=== PATIENT | male | born 1970 | race Caucasian/White ===

== ENCOUNTER → 2016-10-24 | Outpatient (CLI) | payer BC ==
[~2016-10-24] MED LIST: Iopamidol 755 MG/ML 500 ML Multipack Bottle IVPUSH STA
[2016-10-24 16:29] LABS: CHLORIDE,CL 101 mmol/L (98-110); SODIUM,NA 139 mmol/L (136-146)
--- NOTE | 2016-10-25 13:44 | CR ---
EXAM DATE: 10/24/16 PATIENT'S AGE: 46 Patient: GEORGE CARNEY Facility: [facility] Site . Site : 1970 Study: XRay-Chest [id number]/25/2017 4:28:31 PM Ordering Physician: Malachi Marlow Final Report: INDICATION: encounter for other preprocedural exam TECHNIQUE: Chest 2 views. COMPARISON: None. FINDINGS: Cardiovascular and mediastinum: Heart size and vasculature are normal in caliber and appearance. Mediastinum is within normal limits. Lungs and pleural spaces: Lungs are clear. No sign of infiltrate or mass. No sign of pleural effusion. No pneumothorax. Bones and soft tissues: No significant findings. IMPRESSION: Unremarkable chest. Dictated by: Michael Sanchez MD @ 10/25/2016 10:51:04 Signed by: Michael Sanchez MD @10/25/2016 10:51:04 AM (Electronic Signature) Report Signed by Proxy and Original Signed Document filed in the Medical Record. MTDD
--- NOTE | 2016-10-25 13:45 | CT ---
EXAM DATE: 10/24/16 PATIENT'S AGE: 46 Patient: GEORGE CARNEY Facility: [facility] Site . Site : 1970 Study: CT-ST Neck [id number]/25/2017 4:50:13 PM Ordering Physician: Malachi Marlow Final Report: INDICATION: Lump on side of face. Preoperative evaluation. CT NECK WITH CONTRAST TECHNIQUE: Axial multidetector CT imaging was performed through the neck following intravenous contrast administration using 75 mL Isovue 370. Coronal and sagittal reconstructions were generated. FINDINGS: There is a 5.3 x 3.5 x 3.7 centimeter cystic mass in the lateral left neck just beneath the skin at the level of the parotid gland. The mass indents the lateral aspect of the left parotid. The mass has an imperceptibly thin wall and shows uniform fluid attenuation. No abnormally enlarged lymph nodes are identified. There is no evidence of abscess. The included airway is within normal limits. The left parotid, submandibular, and thyroid glands are unremarkable. Cervical vascular structures are within normal limits. Osseous structures show no significant findings. Included skull base and lung apices are unremarkable. IMPRESSION: 5.3 x 3.5 x 3.7 centimeter cystic mass in the lateral upper left neck, just below the skin surface. A benign mass of dermal origin, such as a sebaceous cyst or epidermal inclusion cyst, is favored. A cystic lesion arising from the superficial aspect of the parotid is also possible, but considered less likely. Branchial cleft cyst is also a consideration. BRIAN NAVARRETE MD [employer] Dictated by Silvestre Navarrete MD @ 10/24/2016 5:15:17 PM Dictated by: Silvestre Navarrete MD @ 10/24/2016 17:17:35 Signed by: Silvestre Navarrete MD @10/24/2016 5:17:35 PM (Electronic Signature) Report Signed by Proxy and Original Signed Document filed in the Medical Record. [facility] HOSPITALGio
== END ==
LOC: MW.DI 15:57
PROVIDERS: ATTEND Otolaryngology
DX: R22.0 Localized swelling, mass and lump, head (principal); Z01.818 Encounter for other preprocedural examination; R22.1 Localized swelling, mass and lump, neck
CPT/HCPCS: 36415; 70491; 71020; 80053; 80061; 85027; 85610; 85730; Q9967

== ENCOUNTER 2016-11-01 06:24 | Day surgery (SDC) | payer BC ==
--- NOTE | 2016-11-01 07:11 | PCM.PREANE ---
Preanesthetic Assessment - Anesthesia/Transfusion/Family Hx Anesthesia History: Prior Anesthesia Without Reaction Family History of Anesthesia Reaction: No Transfusion History: No Prior Transfusion(s) Intubation History: Unknown - Review of Systems General: No Symptoms Pulmonary: No Symptoms Cardiovascular: No Symptoms Gastrointestinal: No symptoms Neurological: No Symptoms Other: Reports: None - Physical Assessment Height: 1.8 m Weight: 69.853 kg ASA Class: 2 Mental Status: Alert & Oriented x3 Airway Class: Mallampati = 2 Dentition: Reports: Normal Dentition Thyro-Mental Finger Breadths: 3 Mouth Opening Finger Breadths: 2 ROM/Head Extension: Full Lungs: Clear to auscultation, Normal respiratory effort Cardiovascular: Regular Rate, Regular Rhythm - Allergies Allergies/Adverse Reactions: Allergies Allergy/AdvReac Type Severity Reaction Status Date / Time No Known Allergies Allergy Verified 10/30/16 08:24 - Blood Blood Available: No - Anesthesia Plan Pre-Op Medication Ordered: None - Acknowledgements Anesthesia Type Planned: General Anesthesia Pt an Appropriate Candidate for the Planned Anesthesia: Yes Alternatives and Risks of Anesthesia Discussed w Pt/Guardian: Yes Pt/Guardian Understands and Agrees with Anesthesia Plan: Yes PreAnesthesia Questionnaire HEENT History: Reports: None Musculoskeletal History: Reports: Arthritis Dermatologic History: Reports: Other (see below) Other Dermatologic History: 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 from abdominal area) - SUBSTANCE USE Smoking Status *Q: Current Every Day Smoker (2 ppd) Tobacco Use Within Last Twelve Months: Cigarettes Number of Drinks Per Day: 2 Recreational Drug Use History: No - HOME MEDS Home Medications: Home Meds . [No Known Home Meds] 10/30/16 [History]
[2016-11-01] MEDS ORDERED: Lidocaine 2% 5 ML SDV ONE ×2 (07:26→10:38)
[2016-11-01] MEDS ORDERED: Propofol 200 MG/20 ML SDV ONE ×2 (07:27→09:12)
[2016-11-01] MEDS ORDERED: fentaNYL 100 MCG/2 ML SDV ONE (07:27)
[2016-11-01] MEDS ORDERED: Midazolam 1 MG/ML 2 ML SDV ONE (07:27)
--- NOTE | 2016-11-01 08:32 | PCM.HPR ---
H & P Addendum review - H & P Addendum Review Date of Original H & P: 10/20/16 Date Reviewed: 11/01/16 Time Reviewed: 08:30 Patient was examined: No Changes
[2016-11-01] MEDS ORDERED: EPINEPHrine 1:1000 1 MG/ML SDV ONE (08:36)
[2016-11-01] MEDS ORDERED: Lidocaine 2% with EPINEPHrine 1:100,000 20 ML MDV ONE (08:37)
[2016-11-01] MEDS ORDERED: ceFAZolin 1 GM Vial ONE (09:11)
[2016-11-01] MEDS ORDERED: Sodium Chloride 0.9% 20 ML ONE (09:11)
[2016-11-01] MEDS ORDERED: Metoprolol Tartrate 5 MG/5 ML SDV ONE (09:16)
[2016-11-01] MEDS ORDERED: Dexamethasone 4 MG/ML 5 ML MDV ONE (09:17)
[2016-11-01] MEDS ORDERED: fentaNYL 250 MCG/5 ML SDV ONE (09:29)
[2016-11-01] MEDS ORDERED: fentaNYL 100 MCG/2 ML SDV IVPUSH PRN (09:45)
[2016-11-01] MEDS ORDERED: Phenylephrine/Normal Saline 100 MCG/ML 10 ML Syringe ONE (09:57)
[2016-11-01] MEDS ORDERED: Ondansetron 4 MG/2 ML SDV ONE (10:41)
[2016-11-01] MEDS ORDERED: Ketorolac 30 MG/ML SDV ONE (10:41)
--- NOTE | 2016-11-01 12:16 | PCM.OPNOTE ---
- General Post-Op/Procedure Note Date of Surgery/Procedure: 11/01/16 Pre Op Diagnosis: Left facial mass Post-Op Diagnosis: Left facial mass - likely sebaceous cyst or epidermoid Anesthesia Technique: General LMA Primary Surgeon: Ele Ly Anesthesia Provider: Porsche Stroud [facility] Fluid Replacement, Intraop: 1,500 EBL in mLs: 10 Surgical Drain/Tube Type: [place] Condition: Good Free Text/Narrative:: Indication : Patient presented to my office with a 8 year history of gradually enlarging left facial mass. This according to him had been drained twice in [place]. When seen by me in the office he had approximately 7 x 6 cm soft fluctuant and nontender mass on the left side of his face in position overlying parotid gland. He underwent a contrast CT scan of the face and neck which revealed of 5.3 x 3.5 x 3.7 cm cystic mass in the left upper lateral neck- subcutaneous. Fat planes between the mass and parotid were not well defined. An informed consent was obtained, risks and benefits were discussed and he was brought back to operating room for excision of the mass. Findings: Left facial mass in region of the parotid gland and lifting the ear lobule. Approx 6cm X 5 cm; firm , tense and unable to pinch off the skin. On excision - a 5. 3 cm X 4 cm white mass with cheesy material was removed. Procedure: A timeout was performed and the patient was brought back to operating room. General anesthesia was administered with LMA. Patient was appropriately positioned on the operating table. The part was prepped and draped in a standard sterile fashion and corner of the left side of the mouth was left exposed. A skin crease incision was marked overlying the swelling extending from just beneath the lobule to 6 cm inferiorly. 2% lidocaine with 1: 100,000 epinephrine was infiltrated-6 mils were used. Skin incision was made with a #15 blade. Further careful dissection was performed in a subdermal plane adjacent to the hair follicles to gently delineate the mass anteriorly. Peanuts were also used for dissection. Superiorly the mass was from the lobule soft tissue with a combination of cold steal and bipolar dissection. Similar dissection was performed to define the posterior and inferior aspects of the swelling. A small puncture in the mass was made-likely the point of previous incision and drainage. Minimal white cheesy material was extruded. Further careful dissection with a clamp was performed to separate the mass from the deeper aspect-dairy agueda parotid fascia. The fascia was not breached and none of the branches of the facial nerve were visualized. The mass was removed in its entirety. This was sent away for histopathology. Hemostasis was ensured with bipolar at a setting of 15. Wound was thoroughly irrigated with saline. A 1 / 4" Alf drain was inserted in the wound. Subcutaneous tissue was sutured with 3-0 Vicryl AND SKIN WITH 4.0 Prolene Pressure dressing was applied with gauze and secured with tape. This concluded the procedure and the patient was handed over to anesthesia for recovery. Specimens: Excised left facial mass Followup: In one day for drain removal Disposition: To PACU for recovery
== END 2016-11-01 12:40 | disposition home or self-care (01) ==
LOC: MW.SDS 06:24
PROVIDERS: ATTEND Otolaryngology
PROC: 0JB10ZZ Excision of Face Subcutaneous Tissue and Fascia, Open Approach (ICD-10-PCS; principal; 2016-11-01)
DX: L72.0 Epidermal cyst (principal); L72.3 Sebaceous cyst; M19.90 Unspecified osteoarthritis, unspecified site; F17.210 Nicotine dependence, cigarettes, uncomplicated; Z90.89 Acquired absence of other organs; Z98.890 Other specified postprocedural states
CPT/HCPCS: 11446; J0690; J1100; J1885; J2250; J2405; J3010; 00300; 88304; J0171; J2704